=== PATIENT | female | born 1965 | race African-American/Black ===

== ENCOUNTER 2017-01-04 07:43 | Emergency (ER) | payer OTHER ==
[~2017-01-04] VITALS: Ht 177.8 cm; Wt 102.1 kg
[~2017-01-04 07:43] MED LIST: CLARITIN10 MG PO; LISINOPRIL2.5 MG PO; LISINOPRIL20 MG PO; PREDNISONE 20 M20 M1 PO; TUMS PO; TYLENOL P.M. E1 EAC3 PO; VENLAFAXINE H37.5 MG PO; ZANTAC 150MG T150 M1 PO
[2017-01-04] MEDS ORDERED: TRAMADOL 50 MG50 MG PO (09:07)
[2017-01-04] MEDS ORDERED: CLEOCIN HCL150 MG PO (09:07)
[2017-01-04 09:29] VITALS: BP 148/96
== END 2017-01-04 09:30 | disposition home or self-care (01) ==
LOC: ER 07:43
DX: K08.89 Other specified disorders of teeth and supporting structures (principal); K21.9 Gastro-esophageal reflux disease without esophagitis; Z88.0 Allergy status to penicillin